=== PATIENT | male | born 1995 | race Caucasian/White ===

== ENCOUNTER 2020-01-11 14:15 | Emergency (ER) | payer MEDICAID, SELFPAY ==
[~2020-01-11] VITALS: Ht 165.1 cm; Wt 117.9 kg
[2020-01-11 14:17] VITALS: Ht 165.1 cm; Wt 117.9 kg
[2020-01-11 16:55] VITALS: BP 134/74
== END 2020-01-11 17:43 | disposition home or self-care (01) ==
LOC: ED 14:15
DX: U07.1 COVID-19 (principal); B34.9 Viral infection, unspecified
CPT/HCPCS: 87804; Q0092; U0003-CS